=== PATIENT | male | born 1990 | race Caucasian/White ===

== ENCOUNTER 2021-01-21 00:51 | Inpatient (IN) | payer OTHER ==
[2021-01-21] MEDS ORDERED: KETOROLAC 15 MG/ML 1 ML VIAL IM STA (01:03)
[2021-01-21] MEDS ORDERED: MORPHINE SULFATE 4 MG/ML SYRINGE IM STA (01:03)
[2021-01-21] MEDS ORDERED: DIPH,PERTUS(ACELL)TETVAC-LF 0.5 ML VIAL IM ONE (01:12)
--- NOTE | 2021-01-21 01:28 | XR ---
EXAMINATION TYPE: XR finger LT DATE OF EXAM: 01/21/2021 COMPARISON: NONE HISTORY: Pain and swelling TECHNIQUE: 3 views FINDINGS: There is some soft tissue swelling around the hand and the thumb. There is no evidence of focal bone destruction. I see no fracture nor dislocation. Thumb appears inta ct. IMPRESSION: Mild soft tissue swelling. No fracture seen.
--- NOTE | 2021-01-21 01:29 | ED ---
Wound/Laceration HPI - General Chief Complaint: Wound/Laceration Stated Complaint: Left thumb injury Time Seen by Provider: 01/21/21 00:57 Source: patient, family Mode of arrival: ambulatory Limitations: no limitations - History of Present Illness Initial Comments: 30 year-old male patient presents to the emergency department for evaluation of left thumb pain and swelling. Patient states he punctured it on a deanna nail three days ago. It was a dirty nail. States that today the thumb has become quite painful and swollen. Pain worsens with movement. States he has had low grade fever at home around 100 degrees F. Has not taken any medication today for pain or fever. Denies any red streaking up the arm. Denies nuasea or vomiting. - Related Data Allergies Allergy/AdvReac Type Severity Reaction Status Date / Time No Known Allergies Allergy Verified 01/21/21 00:56 Review of Systems ROS Statement: Those systems with pertinent positive or pertinent negative responses have been documented in the HPI. ROS Other: All systems not noted in ROS Statement are negative. Past Medical History Past Medical History: No Reported History History of Any Multi-Drug Resistant Organisms: MRSA Date of last positivie culture/infection: 2014 MDRO Source:: left lower leg Past Surgical History: Orthopedic Surgery Past Psychological History: No Psychological Hx Reported Smoking Status: Current every day smoker Past Alcohol Use History: None Reported Past Drug Use History: None Reported General Exam Limitations: no limitations General appearance: alert, in no apparent distress, other (Physical well- developed, well-nourished adult male patient in no acute distress. Vital signs upon presentation temperature 99.1F oral, pulse 99, respirations 20, blood pressure 143/93, pulse ox 96% on room air.) Respiratory exam: Present: normal lung sounds bilaterally. Absent: respiratory distress, wheezes, rales, rhonchi, stridor Cardiovascular Exam: Present: regular rate, normal rhythm, normal heart sounds. Absent: systolic murmur, diastolic murmur, rubs, gallop, clicks Extremities exam: Present: full ROM, tenderness (Over the left thumb), normal capillary refill, other (Fusiform swelling of the left thumb, overlying erythema. Tenderness over the entirety of the thumb. Pad of the thumb is soft. No evidence for abscess. Radial pulses 2+.). Absent: pedal edema, joint swelling, calf tenderness Neurological exam: Present: alert, oriented X3, CN II-XII intact Psychiatric exam: Present: normal affect, normal mood Skin exam: Present: warm, dry, intact, normal color. Absent: rash Course Vital Signs 01/21/21 01/21/21 00:52 01:00 Temperature 98.6 F 99.1 F Pulse Rate 99 Respiratory 20 Rate Blood Pressure 143/93 O2 Sat by Pulse 96 Oximetry Medical Decision Making - Medical Decision Making 30-year-old male patient presents for evaluation of left thumb pain and swelling after a puncture injury on Sunday. Physical examination did reveal fusiform swelling, generalized tenderness to the thumb. There is overlying erythema. No evidence for abscess. No lymphangitis. Did have low-grade temperature 99.1F. He was given pain medication here. X-rays negative for evidence for foreign body or bony injury. We started IV antibiotics for possible flexor ten osynovitis. He'll be admitted for further evaluation by orthopedics. He is agreeable this plan. Case discussed with my attending Dr. Nolen who also saw and evaluated the patient. - Radiology Data Radiology results: report reviewed, image reviewed 3 views of the left thumb are obtained. Report reviewed in its entirety. Impression by Dr. Corona shows mild soft tissue swelling. No fracture seen. Disposition Clinical Impression: Flexor tenosynovitis of thumb, Puncture wound of left thumb Disposition: ADMITTED IP TO THIS [facility] Condition: Serious Referrals: None,Stated [Primary Care Provider] - 1-2 days Decision to Admit Reason: Admit from EC Decision Date: 01/21/21 Decision Time: 02:19
[2021-01-21] MEDS ORDERED: VANCOMYCIN IV PER PHARMACY 1 EACH MISC MISCELLANE PRN (02:10)
[2021-01-21] MEDS ORDERED: PIPERACILLIN-TAZOBACTAM 3.375 GM in SODIUM CHLORIDE 0.9% 100 ML IVPB STA (02:11)
[2021-01-21] MEDS ORDERED: SODIUM CHLORIDE 0.9% 1,000 ML IV ONE (02:12)
[2021-01-21] MEDS ORDERED: NALOXONE 0.4 MG/ML 1 ML VIAL IV PRN (02:16)
[2021-01-21] MEDS ORDERED: VANCOMYCIN 1,250 MG in SODIUM CHLORIDE 0.9% 250 ML IVPB ONE (02:30)
[2021-01-21] MEDS: SODIUM CHLORIDE 0.9% 1,000 ML IV SCH ×2 (03:04→17:21)
[2021-01-21 03:13] LABS: Basophils % (A) 0 %; Eosinophils # (A) 0.1 k/uL (0-0.7); Eosinophils % (A) 2 %; HCT 37.7 % (39.0-53.0); HGB 12.9 gm/dL (13.0-17.5); Lymphocytes # (A) 1.7 k/uL (1.0-4.8); Lymphocytes % (A) 22 %; MCH 32.1 pg (25.0-35.0); MCHC 34.1 g/dL (31.0-37.0); Mean Platelet Volume 7.2; Monocytes # (A) 0.6 k/uL (0-1.0); Monocytes % (A) 7 %; Neutrophils # (A) 5.1 k/uL (1.3-7.7); Neutrophils % (A) 66 %; Platelet Count 196 k/uL (150-450); RBC 4.01 m/uL (4.30-5.90); RDW 13.4 % (11.5-15.5); WBC 7.7 k/uL (3.8-10.6)
[2021-01-21 03:45] LABS: ALT 70 U/L (4-49); AST 58 U/L (17-59); African American GFR (CKD) >90 (>60 ml/min/1.73 sqM); Albumin 3.6 g/dL (3.5-5.0); Alkaline Phosphatase 71 U/L (38-126); Anion Gap 8 mmol/L; Blood Urea Nitrogen 14 mg/dL (9-20); Calcium 8.5 mg/dL (8.4-10.2); Carbon Dioxide 26 mmol/L (22-30); Chloride 100 mmol/L (98-107); Glucose 117 mg/dL (74-99); Non-African American GFR(CKD) >90 (>60 ml/min/1.73 sqM); Potassium 4.1 mmol/L (3.5-5.1); Sodium 134 mmol/L (137-145); Total Bilirubin 0.2 mg/dL (0.2-1.3); Total Protein 6.6 g/dL (6.3-8.2)
[2021-01-21] MEDS: HYDROmorphone 0.5 MG/0.5 ML SYRINGE IVP PRN ×5 (04:01→22:42)
[2021-01-21 04:27] LABS: Erythrocyte Sedimentation Rate 17 mm/hr (0-15)
[2021-01-21] MEDS: KETOROLAC 15 MG/ML 1 ML VIAL IVP PRN ×2 (07:27→17:17)
--- NOTE | 2021-01-21 09:53 | P.CNOR ---
History of Present Illness - [facility] Consult date: 01/21/21 Requesting physician: Becky Brown Consult reason: other (tenosynovitis left thumb) History of present illness: Patient presented the emergency room last night with left thumb pain and swelling. Patient states 3 days ago he was on a roof and a nail went through his thumb. He says over the past couple days the thumb has become much more painful and inflamed. He says the pain increases with movement. Patient denies any numbness/tingling. Patient does say he feels like the portion of his thumb where the nail went through feels like someone took a match to it and lit it. Hever irizarry feels like this burning sensation s moving down his thumb towards his wrist. He says he did have a fever at home. 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 Patient denies chest pain, trace breath, nausea, vomiting, headache, loss of bowel/bladder control. Past Medical History Past Medical History: No Reported History History of Any Multi-Drug Resistant Organisms: MRSA Year Discovered:: 2014 MDRO Source:: left lower leg Past Surgical History: Orthopedic Surgery Additional Past Surgical History / Comment(s): Left knee surgery, Left Elbow Surgery Past Psychological History: No Psychological Hx Reported Smoking Status: Current every day smoker Past Alcohol Use History: None Reported Past Drug Use History: None Reported Medications and Allergies Home Medications Medication Instructions Recorded Confirmed Type No Known Home Medications 01/21/21 01/21/21 History Allergies Allergy/AdvReac Type Severity Reaction Status Date / Time No Known Allergies Allergy Verified 01/21/21 06:58 Physical Examination Left thumb: Inspection - thumb is inflamed, edematous, erythematous distal to the IP joint. Puncture wounds from the nail is evident distal to the IP joint at the palmar aspect of thumb. Palpation - tenderness to palpation throughout the left thumb. Nontender to palpation at the base of the thumb at the carpal regon. NTTP at wrist as well as other digits. Sensation - patient does have burning sensation distal to the IP joint of the left thumb. ROM- range of motion of left thumb is limited due to patient being in pain. Flexion and abduction are limited. Neurovascular - radial pulses intact, symmetric, 2+. Cap refill <3 sec Results - Labs Labs: Abnormal Lab Results - Last 24 Hours (Table) 07/30/21 07/30/21 Range/Units 02:45 02:45 RBC 4.01 L (4.30-5.90) m/uL Hgb 12.9 L (13.0-17.5) gm/dL Hct 37.7 L (39.0-53.0) % ESR 17 H (0-15) mm/hr Sodium 134 L (137-145) mmol/L Creatinine 0.64 L (0.66-1.25) mg/dL Glucose 117 H (74-99) mg/dL ALT 70 H (4-49) U/L H & H 01/21/21 Range/Units 02:45 Hgb 12.9 L (13.0-17.5) gm/dL Hct 37.7 L (39.0-53.0) % Result Diagrams: 01/21/21 02:45 01/21/21 02:45 Assessment and Plan Assessment: Left thumb tenosynovitis Plan: 1. Left thumb tenosynovitis - patient seen at bedside this morning. At this time we recommend patient to continue IV antibiotics. We'll continue to follow patient daily. At this time we do not recommend any orthopedic surgical intervention. 2. Appreciate medical management and ID - Zosyn and Vanco 3. Pain management - stable at this time Time with Patient: Less than 30
[2021-01-21] MEDS ORDERED: PIPERACILLIN-TAZOBACTAM 3.375 GM in SODIUM CHLORIDE 0.9% 100 ML IVPB SCH (11:00)
[2021-01-21] MEDS: VANCOMYCIN 1,250 MG in SODIUM CHLORIDE 0.9% 250 ML IVPB SCH ×2 (12:25→20:14)
[2021-01-21] MEDS: CEFEPIME 2 GM in SODIUM CHLORIDE 0.9% 100 ML IVPB SCH (15:37)
--- NOTE | 2021-01-21 22:01 | P.CONS ---
History of Present Illness - Reason for Consult Consult date: 01/21/21 tenosynovitis Requesting physician: Emma Archer - Chief Complaint left thumb pain and swelling 3 days - History of Present Illness Patient is a 30-year male presenting to the ER after midnight with pain pulled swelling redness of the left thumb area, apparently 3 days ago the patient was working on the roof and the nail went through his thumb the patient started having pain swelling or redness to the left thumb since then that has progressively in increase in severity patient described the pain to be throbbing intensity is almost 10 out of 10 and has limited motion of his left thumb area patient denies any drainage from the left thumb and the patient did have a fever at home with the symptoms the patient presented to hospital on arrival to the ER the patient was afebrile subsequently have low-grade fever of 99.1 degree form height patient did have a normal white count no left shift kidney function has been normal patient did have x-rays of the finger patient has mild soft tissue swelling no fracture seen patient was admitted to the hospital started on vancomycin and Zosyn infectious disease was consulted for further management of antibiotic therapy Review of Systems Positive point has been mentioned in the HPI rest of the systems are negative Past Medical History Past Medical History: No Reported History History of Any Multi-Drug Resistant Organisms: MRSA Year Discovered:: 2014 MDRO Source:: left lower leg Past Surgical History: Orthopedic Surgery Additional Past Surgical History / Comment(s): Left knee surgery, Left Elbow Surgery Past Psychological History: No Psychological Hx Reported Smoking Status: Current every day smoker Past Alcohol Use History: None Reported Past Drug Use History: None Reported Medications and Allergies Home Medications Medication Instructions Recorded Confirmed Type No Known Home Medications 01/21/21 01/21/21 History Allergies Allergy/AdvReac Type Severity Reaction Status Date / Time No Known Allergies Allergy Verified 01/21/21 06:58 Physical Exam Vitals: Vital Signs Temp Pulse Pulse Resp BP BP Pulse Ox 01/21/21 12:30 52 L 16 01/21/21 07:52 52 L 16 01/21/21 07:00 97.7 F 58 L 16 122/72 99 01/21/21 04:06 98.0 F 52 L 16 127/75 98 01/21/21 03:08 97.8 F 61 16 120/68 96 01/21/21 01:00 99.1 F 01/21/21 00:52 98.6 F 99 20 143/93 96 Intake and Output 01/20/21 01/21/21 01/21/21 22:59 06:59 14:59 Other: # Voids 1 2 Weight 72.575 kg GENERAL DESCRIPTION: Middle-aged male lying in bed, no distress. No tachypnea or accessory muscle of respiration use. HEENT: Shows Pallor , no scleral icterus. Oral mucous membrane is dry. No pharyngeal erythema or thrush NECK: Trachea central, no thyromegaly. LUNGS: Unlabored breathing. Clear to auscultation anteriorly. No wheeze or crackle. HEART: S1, S2, regular rate and rhythm. No loud murmur ABDOMEN: Soft, no tenderness , guarding or rigidity, no organomegaly EXTREMITIES: Left thumb did have swelling and redness tender to touch no drainage SKIN: No rash, no masses palpable. NEUROLOGICAL: The patient is awake, alert, oriented x3, mood and affect normal. Results CBC & Chem 7: 01/21/21 02:45 01/21/21 02:45 Labs: Abnormal Lab Results - Last 24 Hours (Table) 01/21/21 01/21/21 Range/Units 02:45 02:45 RBC 4.01 L (4.30-5.90) m/uL Hgb 12.9 L (13.0-17.5) gm/dL Hct 37.7 L (39.0-53.0) % ESR 17 H (0-15) mm/hr Sodium 134 L (137-145) mmol/L Creatinine 0.64 L (0.66-1.25) mg/dL Glucose 117 H (74-99) mg/dL ALT 70 H (4-49) U/L Assessment and Plan Assessment: patient with left thumb cellulitis and concern for underlying abscess started with nail injury 3 days ago will need to cover for both gram-positive skin steven as well as gram-negative usually associated with this types of infection, patient may benefit from surgical drainage and cultures to help heal infection as well in identifying height the infecting pathogen (1) Flexor tenosynovitis of thumb Current Visit: Yes Status: Acute Code(s): M65.9 - SYNOVITIS AND TENOSYNOVITIS, UNSPECIFIED SNOMED Code(s): 794476503 (2) Puncture wound of left thumb Current Visit: Yes Status: Acute Code(s): S61.032A - PNCTR W/O FB OF LEFT THUMB W/O DAMAGE TO NAIL, INIT SNOMED Code(s): 18277215488054733 Plan: 1-vancomycin pharmacy to dose her with a target trough of 15 while watching her kidney function and Vanco trough closely. 2-discontinue Zosyn rectus risk of nephrotoxicity and and cefepime to cover for gram-negative 3-cultures both aerobic and anaerobic at the time of surgical drainage We will follow on clinical condition and cultures to further adjust medication if needed Thank you for this consultation we will follow the patient along with you Time with Patient: Greater than 30
--- NOTE | 2021-01-21 23:47 | P.HPIM ---
History of Present Illness H&P Date: 01/21/21 Chief Complaint: Left thumb pain and swelling Patient is a 30-year-old male without significant past medical history except current everyday smoker presents to ER with complaints of left thumb swelling and worsening pain for the past 3 days. 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 Since then he has been having pain, swelling and feels like burning of the thumb. Pain is progressively getting worse 10 out of 10 which made him to come to ER. Denied any drainage from the entry wound. Did have fever at home. T-max is 99.1 on admission. Denied any complaints of chest pain or shortness well. No headache or dizziness or lightheadedness. Patient is complaining of pain and requesting IV pain medications. Laboratory data showed WBC 7.7 hemoglobin 12.9 and platelets 196 Sodium 134 potassium 4.1 chloride 100 bicarb is 26 BUN 14 and creatinine 0.64 blood sugar is 117 and liver enzymes are not elevated Review of Systems Constitutional: Patient Subjective fevers and chills . No generalized weakness or weight loss. Abdomen: Patient denied nausea vomiting and diarrhea and abdominal pain. Cardiovascular: Patient denies any chest pain or short of breath no palpitations. Respiratory: patient denied any cough or sputum production. No shortness of breath Neurologic: Patient denied any numbness or tingling headache. Musculoskeletal: Patient denies any complaints of joint swelling or deformity.Left thumb pain and swelling Skin: Negative Psychiatric: Negative Endocrine: No heat or cold intolerance. No recent weight gain. Genitourinary: No dysuria or hematuria. All other 14 point ROS negative except the above Past Medical History Past Medical History: No Reported History History of Any Multi-Drug Resistant Organisms: MRSA Date of last positivie culture/infection: 2014 MDRO Source:: left lower leg Past Surgical History: Orthopedic Surgery Additional Past Surgical History / Comment(s): Left knee surgery, Left Elbow Surgery Past Psychological History: No Psychological Hx Reported Smoking Status: Current every day smoker Past Alcohol Use History: None Reported Past Drug Use History: None Reported Medications and Allergies Home Medications Medication Instructions Recorded Confirmed Type No Known Home Medications 01/21/21 01/21/21 History Allergies Allergy/AdvReac Type Severity Reaction Status Date / Time No Known Allergies Allergy Verified 01/21/21 06:58 Physical Exam Vitals: Vital Signs Temp Pulse Pulse Resp BP BP Pulse Ox 01/21/21 07:52 52 L 16 01/21/21 07:00 97.7 F 58 L 16 122/72 99 01/21/21 04:06 98.0 F 52 L 16 127/75 98 01/21/21 03:08 97.8 F 61 16 120/68 96 01/21/21 01:00 99.1 F 01/21/21 00:52 98.6 F 99 20 143/93 96 Intake and Output 01/20/21 01/21/21 01/21/21 22:59 06:59 14:59 Other: # Voids 1 Weight 72.575 kg PHYSICAL EXAMINATION: Patient is lying in the bed comfortably, no acute distress, awake alert and oriented.. HEENT: Normocephalic. Neck is supple. Pupils reactive. Nostrils clear. Oral cavity is moist. Neck reveals no JVD, carotid bruits, or thyromegaly. CHEST EXAMINATION: Trachea is central. Symmetrical expansion. Lung riley clear to auscultation and percussion. CARDIAC: Normal S1, S2 with no gallops. No murmurs ABDOMEN: Soft. Bowel sounds normal. No organomegaly. No abdominal bruits. Extremities: reveal no edema. No clubbing or cyanosis. Patient does have left thumb and severe tenderness with palpation. Decreased range of motion. Neurologically awake, alert, oriented x3 with well-coordinated movements. No focal deficits noted Skin: No rash or skin lesions. Psychiatric: Coperative. Nonsuicidal Musculoskeletal: No joint swelling or deformity. Normal range of motion. Results CBC & Chem 7: 01/21/21 02:45 01/21/21 02:45 Labs: Abnormal Lab Results - Last 24 Hours (Table) 01/21/21 01/21/21 Range/Units 02:45 02:45 RBC 4.01 L (4.30-5.90) m/uL Hgb 12.9 L (13.0-17.5) gm/dL Hct 37.7 L (39.0-53.0) % ESR 17 H (0-15) mm/hr Sodium 134 L (137-145) mmol/L Creatinine 0.64 L (0.66-1.25) mg/dL Glucose 117 H (74-99) mg/dL ALT 70 H (4-49) U/L Thrombosis Risk Factor Assmnt - DVT/VTE Prophylaxis DVT/VTE Prophylaxis: Pharmacologic Prophylaxis ordered - Choose All That Apply Any of the Below Risk Factors Present?: No Other Risk Factors: No Other congenital or acquired thrombophilia - If yes, enter type in comment: No Thrombosis Risk Factor Assessment Level: Very Low Risk Assessment and Plan Assessment: Left thumb cellulitis and flexor tenosynovitis. Patient had nail injury 3 days ago with subjective fevers and severe pain. Ongoing nicotine addiction Plan: Patient will be continued broad-spectrum antibiotics in the form of vancomycin and cefepime as per ID recommendations. Zosyn has been discontinued. Orthopedic surgery has seen the patient and recommends continue with antibiotics at this time and possible I&D if no improvement with conservative measures. Continue with pain medication as above Dilaudid and Toradol and follow-up culture reports. Continue to follow closely. Smoking cessation has been counseled.
[2021-01-22] MEDS: CEFEPIME 2 GM in SODIUM CHLORIDE 0.9% 100 ML IVPB SCH ×3 (00:49→16:01)
[2021-01-22] MEDS: VANCOMYCIN 1,250 MG in SODIUM CHLORIDE 0.9% 250 ML IVPB SCH ×3 (04:49→20:22)
[2021-01-22] MEDS: HYDROcodone/APAP 5-325MG 1 EACH TAB PO PRN ×2 (05:55→19:29)
[2021-01-22] MEDS: SODIUM CHLORIDE 0.9% 1,000 ML IV SCH ×2 (05:57→15:49)
[2021-01-22 06:44] LABS: African American GFR (CKD) >90 (>60 ml/min/1.73 sqM); Anion Gap 6 mmol/L; Blood Urea Nitrogen 9 mg/dL (9-20); Calcium 8.2 mg/dL (8.4-10.2); Carbon Dioxide 23 mmol/L (22-30); Chloride 106 mmol/L (98-107); Glucose 99 mg/dL (74-99); Non-African American GFR(CKD) >90 (>60 ml/min/1.73 sqM); Potassium 4.5 mmol/L (3.5-5.1); Sodium 135 mmol/L (137-145)
--- NOTE | 2021-01-22 10:02 | P.PN ---
Subjective Progress Note Date: 01/22/21 Principal diagnosis: Left thumb felon Patient seen and examined this morning. He states is not doing really any better at this time. States that it seems to is consolidated a little bit more to the tip of his left thumb. He complains of pain continuously in this thumb. Denies any numbness or tingling. He states it may be underneath his fingernails as well. Denies any other issues at this time. Objective - Vital Signs Vital signs: Vital Signs Temp 98.2 F 01/22/21 07:00 Pulse 57 L 01/22/21 07:00 Resp 16 01/22/21 07:00 BP 129/77 01/22/21 07:00 Pulse Ox 98 01/22/21 07:00 Intake & Output 01/21/21 01/22/21 01/22/21 18:59 06:59 18:59 Intake Total 350 200 Balance 350 200 Intake: Intake, IV Titration 350 Amount Piperacillin-Tazobactam 3 100 .375 gm In Sodium Chloride 0.9% 100 ml @ 25 mls/hr IVPB Q8H [facility] Rx#: [id number] Vancomycin 1,250 mg In 250 Sodium Chloride 0.9% 250 ml @ 125 mls/hr IVPB Q8H [facility] Rx#:[id number] Oral 200 Other: # Voids 2 - Exam Left thumb is again examined it does show more of a consolidation within the fat pad of the left thumb more of a felon in nature. Sensation is still intact C5 to T1 medially all her nerve motor still intact. No other exam changes at this time. - Labs CBC & Chem 7: 01/21/21 02:45 01/22/21 05:45 Labs: Abnormal Lab Results - Last 24 Hours (Table) 01/22/21 Range/Units 05:45 Sodium 135 L (137-145) mmol/L Creatinine 0.46 L (0.66-1.25) mg/dL Calcium 8.2 L (8.4-10.2) mg/dL Microbiology - Last 24 Hours (Table) 01/21/21 02:45 Blood Culture - Preliminary Blood No Growth after 24 hours 01/21/21 02:30 Blood Culture - Preliminary Blood No Growth after 24 hours Assessment and Plan Assessment: 30-year-old male left thumb felon Plan: Orthopedic Surgery Risk Review Isidro Turpin is a 30 yo RHD male presenting for evaluation of sudden onset R thumb pain, after nail gun injury to left thumb distal tip. It was my pleasure to have seen and examined Isidro. In our visit today we have had a chance to go over subjective complaints, phy sical examination findings and treatments including the natural course history without intervention and various interventional options. Hsi imaging demonstrates No acute fracture or dislocation, soft tissue swelling about the thumb. On physical exam, Isidro demonstrates pain with motion of Left thumb with TTP of the distal fat pad with felon appearance and abscess, no flexor sheath pain, no fusiform swelling, no passive motion pain, which is NV intact at this time. I have explained to the patient that this fracture needs stabilization. Based on the patients imaging, physical exam, and the rapid progression and disabling nature of her symptoms, at this time I recommend surgery in the form or a: Incision and drainage of Left thumb felon I discussed the risk and benefits of this procedure at length with Isidro. Questions were invited and answered, and the patient wishes to proceed as outlined below. Currently, I am recommendin. Left thumb incision and drainage of felon 2. Review of surgical risks and benefits as well as an educational packet on the proposed surgical procedure. Risks: All surgical procedures come with inherent risks, including those related to positioning, anesthesia, intraoperative findings, and postoperative complications. It is important to understand that surgery does not come with any guarantee of a successful outcome as complications and adverse events are always possible. The patient was given a handout discussing the surgical procedure and risks associated with the intervention, both of which were discussed with the patient. These risks include but are not limited to the following: - Experiencing same, different or even worse symptoms compared to before surgery. - Requiring further surgery or other forms of treatment presently or at some time in the future . - On an extreme but fortunately relatively rare basis severe complication such as blindness, stroke, heart attack, temporary and/or permanent nerve injury, paralysis, coma, or may occur, sometimes without known explanation. - Surgical complications may include but are not limited to risk of infection, fluid accumulation in the surgical dissection site, including a seroma or hematoma, that requires additional surgery, wound drainage, bleeding, new numbness or weakness, vision changes/loss, spinal fluid leakage, non-healing and/or infected incision, headaches, difficulty or inability to swallow, hoarseness, hemopneumothorax, pneumothorax, injury to nerves, spinal cord, blood vessels, lymphatics or other vital organs (i.e., bowel injury, injury to the great vessels); heterotopic bone formation; complications related to the hardware such as screws, rods, including misplaced hardware, device failure, hardware fracture/breakage, or hardware loosening; retained surgical instrumentations or devices and the need for further surgery. - Medical risks of the planned surgery include but are not limited to generalized Infections to the whole body or local areas outside of the surgical site (sepsis), heart attack, bleeding, anaphylaxis, meningitis, seizure, epilepsy, hearing loss, burn archer, laceration of the head or other areas of the body, bruising, hypersensitivity of the skin, bladder over distension; allergic reaction; shoulder injury related to positioning; fat, blood and air clots to other areas of the body like heart, lungs, brain; failure of internal organs such as lungs, kidneys, liver and excessive bleeding. If blood transfusions are necessary, note that transfusions may cause intolerance reactions such as anaphylaxis or other complex reactions. Despite best efforts, the results of surgery might not heal in terms of bone, soft tissues such as skin, fascia, ligaments, and joints. [facility] is an educational center that serves as a training facility for physician assistants, nurses, orthopedic residents and fellows. Residents are physicians who are completing their surgical intensive training following medical school. They assist in the operating room with direct supervision of the attending surgeons. [place] are surgeons who have completed their training and eligible for board certification. They have opted for an elective year of more specialized training in their field. They assist in the operating room under the supervision of the attending surgeons. Physician assistants are medically trained surgical providers who function in the outpatient, inpatient, and operating room setting under the direct supervision of the attending surgeon. [facility] has multiple operating rooms with single and overlapping rooms running daily. They currently function under the required guidelines as produced by the Senate Finance Committee with regards to the overlapping rooms and will continue to comply with changes to this policy as they occur. The requirements include and are complied with as follows: (1) the critical portions of the overlapping rooms will not occur at the same time, (2) the attending physician will be physically present during the critical portions of the procedure and immediately available during the entire case, and (3) a back-up attending is designated should the primary attending not be immediately availab le. The patient has had a chance to review all the listed information, has been given print outs detailing this information, and has had all his/her questions answered to their satisfaction. It was my pleasure to have seen and examined Isidro Turpin. In our visit today w e have had a chance to go over my understanding of our patient's current condition, the natural course history without intervention and various interventional options. Questions were invited and answered, and the patient wishes to proceed as outlined above. I have seen and examined the patient for 25 minutes and we have spent more than 50% of the time in repeat and detailed counseling about the patient's condition, its natural course history with out and as much as can be predicted with surgery and re-review of various surgical treatment options. In conclusion, Isidro Turpin requested we proceed with the above suggested surgery and are willing to accept risks and limitations of the suggested surgery as nature of the disease process and our best attempts at treatment for the condition. Thank you again for allowing us to be part of your patient's care. Please don't hesitate to contact me if you have any further questions. Signed and authenticated by: Jean Marie Rodriguez [facility] [address] [facility], [address] [address]
[2021-01-22] MEDS ORDERED: VANCOMYCIN TROUGH DUE 1 EACH MISC MISCELLANE ONE (11:00)
[2021-01-22 11:01] LABS: Basophils # (A) 0.04 X 10*3/uL (0.00-0.10); Basophils % (A) 0.6 %; Eosinophils # (A) 0.18 X 10*3/uL (0.04-0.35); Eosinophils % (A) 2.8 %; HCT 38.3 % (39.6-50.0); HGB 12.4 g/dL (13.0-17.0); Lymphocytes # (A) 1.69 X 10*3/uL (0.90-5.00); Lymphocytes % (A) 26.2 %; MCH 31.1 pg (27.0-32.0); MCHC 32.4 g/dL (32.0-37.0); Mean Platelet Volume 10.9 fL (9.5-12.2); Monocytes # (A) 0.57 X 10*3/uL (0.20-1.00); Monocytes % (A) 8.8 %; Neutrophils # (A) 3.96 X 10*3/uL (1.80-7.70); Neutrophils % (A) 61.3 %; Platelet Count 173 X 10*3/uL (140-440); RBC 3.99 X 10*6/uL (4.40-5.60); RDW 13.1 % (11.5-14.5); WBC 6.46 X 10*3/uL (4.50-10.00)
[2021-01-22 12:13] LABS: African American GFR (CKD) >90 (>60 ml/min/1.73 sqM); Non-African American GFR(CKD) >90 (>60 ml/min/1.73 sqM)
[2021-01-22] MEDS: HYDROmorphone 0.5 MG/0.5 ML SYRINGE IVP PRN ×3 (12:24→20:22)
[2021-01-22] MEDS ORDERED: fentaNYL (PF) 50 MCG/ML 2 ML AMP ONE (13:15)
[2021-01-22] MEDS ORDERED: MIDAZOLAM 2 MG/2 ML VIAL ONE (13:15)
[2021-01-22] MEDS ORDERED: PROPOFOL 10 MG/ML 20 ML VIAL IV ONE (13:15)
[2021-01-22] MEDS ORDERED: KETAMINE 10 MG/ML 20 ML VIAL ONE (13:15)
[2021-01-22] MEDS ORDERED: LIDOCAINE 2% INJ 20 MG/ML SQ ONE (13:20)
[2021-01-22] MEDS ORDERED: BUPIVACAINE (PF) 0.5% 30 ML VIAL SQ ONE (13:20)
[2021-01-22] MEDS ORDERED: LACTATED RINGERS 1,000 ML IV ONE (13:23)
[2021-01-22] MEDS ORDERED: BACITRACIN ZINC 500 UNIT/GM OINT 28.4 GM TUBE TOPICAL ONE (14:02)
--- NOTE | 2021-01-22 19:31 | PN ---
PROGRESS NOTE DATE OF SERVICE: 01/22/2021 REASON FOR FOLLOWUP: Left arm abscess and cellulitis. INTERVAL HISTORY: Patient is seen this morning, the patient is scheduled for drainage of the left thumb abscess this afternoon. The patient is complaining of significant pain to the left thumb. No chest pain, shortness of breath or cough. No abdominal pain or diarrhea. PHYSICAL EXAMINATION: Blood pressure is 155/89 with pulse of 65, temperature 97.9. He is 98% on room air. General description is a middle-aged male up in the room in no distress. Respiratory system unlabored breathing, clear to auscultation anteriorly. Heart S1, S2. Regular rate and rhythm no tenderness left arm is swollen and red. No drainage. LABS: Creatinine 0.51. DIAGNOSTIC IMPRESSION AND PLAN: Patient with left thumb abscess awaiting surgical drainage and deep cultures. Patient is covered vancomycin, adjusting med for MRSA culture report. Continue supportive care. MMODL / IJN: [id number] /
[2021-01-23] MEDS: CEFEPIME 2 GM in SODIUM CHLORIDE 0.9% 100 ML IVPB SCH ×3 (00:34→16:52)
[2021-01-23] MEDS: VANCOMYCIN 1,250 MG in SODIUM CHLORIDE 0.9% 250 ML IVPB SCH ×3 (04:26→20:56)
[2021-01-23] MEDS: HYDROmorphone 0.5 MG/0.5 ML SYRINGE IVP PRN ×4 (07:06→20:56)
[2021-01-23] MEDS: SODIUM CHLORIDE 0.9% 1,000 ML IV SCH ×2 (08:18→20:56)
--- NOTE | 2021-01-23 10:47 | P.PN ---
Subjective Progress Note Date: 01/23/21 Principal diagnosis: left thumb felon Patient seen at bedside this morning. Patient says his thumb is doing better this morning. He is wondering when he can go home. Thumb is wrapped in Kerlix bandage. Patient denies chest pain, fever, shortness breath, nausea, vomiting, change in vision, loss of bowel/bladder control. Objective - Vital Signs Vital signs: Vital Signs Temp 98.3 F 01/23/21 07:00 Pulse 74 01/23/21 07:00 Resp 18 01/23/21 07:00 BP 161/91 01/23/21 07:00 Pulse Ox 97 01/23/21 07:00 Intake & Output 01/22/21 01/23/21 01/23/21 18:59 06:59 18:59 Intake Total 1240 600 300 Output Total 10 Balance 1230 600 300 Intake: IV 600 Intake, IV Titration 600 Amount Cefepime 2 gm In Sodium 100 Chloride 0.9% 100 ml @ 25 mls/hr IVPB Q8HR [facility] Rx# :[id number] Vancomycin 1,250 mg In 500 Sodium Chloride 0.9% 250 ml @ 125 mls/hr IVPB Q8H [facility] Rx#:[id number] Oral 640 300 Output: Estimated Blood Loss 10 - Exam Left thumb/hand- wrapped in Kerlix bandage. Patient able to flex and extend all other digits on hand. cap refill <3 sec and brisk. radial pulses 2+, intact. - Labs CBC & Chem 7: 01/22/21 05:45 01/22/21 11:17 Labs: Abnormal Lab Results - Last 24 Hours (Table) 01/22/21 01/22/21 Range/Units 05:45 11:17 RBC 3.99 L (4.40-5.60) X 10*6/uL Hgb 12.4 L (13.0-17.0) g/dL Hct 38.3 L (39.6-50.0) % Absolute Nucleated RBC 0.04 H (0.00-0.00) X 10*3/uL NRBC/100 WBC Diff 0.6 H (0.0-0.0) /100 WBCS Creatinine 0.51 L (0.66-1.25) mg/dL Microbiology - Last 24 Hours (Table) 01/22/21 12:00 Gram Stain - Preliminary Finger - Left First Wound Culture - Preliminary 01/22/21 12:00 Gram Stain - Preliminary Finger - Left First Tissue Culture - Preliminary 01/22/21 12:00 Gram Stain - Preliminary Finger - Left First Wound Culture - Preliminary 01/22/21 12:00 Gram Stain - Preliminary Finger - Left First Wound Culture - Preliminary 01/21/21 02:45 Blood Culture - Preliminary Blood No Growth after 48 hours 01/21/21 02:30 Blood Culture - Preliminary Blood No Growth after 48 hours 01/22/21 12:00 Anaerobic Culture - Preliminary Finger - Left First 01/22/21 20:34 Anaerobic Culture - Preliminary Finger - Left First 01/22/21 12:00 Anaerobic Culture - Preliminary Finger - Left First 01/22/21 12:00 Anaerobic Culture - Preliminary Finger - Left First Assessment and Plan Assessment: Left thumb felon Plan: 1. Left thumb felon - surgery performed yesterday, 01/22/2021 - incision & drainage left thumb felon. patient seen at bedside this morning with dressing on. Patient to soak thumb in hibiclens 3-4 times per day for 15 mins at a time. We will continue to follow patient while in hospital. Plan to discharge home tomorrow. 2. Appreciate medical management and ID -Cefepime and Vanco 3. Pain management - stable at this time. [place] 5mg/325 mg. Time with Patient: Less than 30
--- NOTE | 2021-01-23 19:48 | PN ---
PROGRESS NOTE DATE OF SERVICE: 01/23/2021 REASON FOR FOLLOWUP: Left thumb abscess and cellulitis. INTERVAL HISTORY: Patient is afebrile. Pain to the left thumb is currently slightly controlled. Denies any chest pain or shortness of breath. No cough. No abdominal pain. No diarrhea. PHYSICAL EXAMINATION: Blood pressure 151/70 with a pulse of 82, temperature 98.6, he is 96% on room air. General description is a middle-aged male lying in bed in no distress. Respiratory system: Unlabored breathing. Clear to auscultation anteriorly. Heart S1, S2. Regular rate and rhythm. Abdomen soft, no tenderness. Left thumb currently dressed up. No obvious drainage on the dressing. LABS: Cultures currently pending. DIAGNOSTIC IMPRESSION AND PLAN: Patient with left thumb abscess status post surgical drainage yesterday. Cultures are pending. Patient is covered with vancomycin and cefepime. Discharge antibiotic on the basis of culture report. Continue supportive care. MMODL / IJN: [id number] /
[2021-01-24] MEDS: CEFEPIME 2 GM in SODIUM CHLORIDE 0.9% 100 ML IVPB SCH ×2 (00:15→08:11)
[2021-01-24] MEDS: HYDROmorphone 0.5 MG/0.5 ML SYRINGE IVP PRN ×3 (01:01→09:12)
--- NOTE | 2021-01-24 01:23 | P.PN ---
Subjective Progress Note Date: 01/22/21 Principal diagnosis: Left thumb cellulitis and flexor tenosynovitis. Patient is a 30-year-old male without significant past medical history except current everyday smoker presents to ER with complaints of left thumb swelling and worsening pain for the past 3 days. 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 Since then he has been having pain, swelling and feels like burning of the thumb. Pain is progressively getting worse 10 out of 10 which made him to come to ER. Denied any drainage from the entry wound. Did have fever at home. T-max is 99.1 on admission. Denied any complaints of chest pain or shortness well. No headache or dizziness or lightheadedness. Patient is complaining of pain and requesting IV pain medications. Laboratory data showed WBC 7.7 hemoglobin 12.9 and platelets 196 Sodium 134 potassium 4.1 chloride 100 bicarb is 26 BUN 14 and creatinine 0.64 blood sugar is 117 and liver enzymes are not elevated 01/22/2021 Patient is currently lying in the bed complains of left thumb throbbing pain and is requesting any pain medications. Patient continues to have pain last night and could not able to sleep. Swelling seems to be increasing.. Patient was seen by orthopedic surgery and is planning for I&D today. Laboratory data showed WBC 6.4 hemoglobin 12.4 and platelets 173 Sodium 135 potassium 4.5 BUN 9 and creatinine 0.6 Patient has been continued on antibiotics in the form of vancomycin. ID and orthopedic surgery is on board. Current medications reviewed. Objective - Vital Signs Vital signs: Vital Signs Temp 98.5 F 01/22/21 19:10 Pulse 65 01/22/21 20:00 Resp 16 01/22/21 20:00 BP 147/88 01/22/21 19:10 Pulse Ox 99 01/22/21 19:10 Intake & Output 01/22/21 01/22/21 01/23/21 06:59 18:59 06:59 Intake Total 350 1240 Output Total 10 Balance 350 1230 Intake: IV 600 Intake, IV Titration 350 Amount Piperacillin-Tazobactam 3 100 .375 gm In Sodium Chloride 0.9% 100 ml @ 25 mls/hr IVPB Q8H [facility]CLUDE 234 BEDS AT [facility] Rx#: [id number] Vancomycin 1,250 mg In 250 Sodium Chloride 0.9% 250 ml @ 125 mls/hr IVPB Q8H COUNTS INCLUDE 234 BEDS AT THE [facility] Rx#:[id number] Oral 640 Output: Estimated Blood Loss 10 - Exam PHYSICAL EXAMINATION: Patient is lying in the bed comfortably, no acute distress, awake alert and oriented.. HEENT: Normocephalic. Neck is supple. Pupils reactive. Nostrils clear. Oral cavity is moist. Neck reveals no JVD, carotid bruits, or thyromegaly. CHEST EXAMINATION: Trachea is central. Symmetrical expansion. Lung riley clear to auscultation and percussion. CARDIAC: Normal S1, S2 with no gallops. No murmurs ABDOMEN: Soft. Bowel sounds normal. No organomegaly. No abdominal bruits. Extremities: reveal no edema. No clubbing or cyanosis. Patient does have left thumb and severe tenderness with palpation. Decreased range of motion. Neurologically awake, alert, oriented x3 with well-coordinated movements. No focal deficits noted Skin: No rash or skin lesions. Psychiatric: Coperative. Nonsuicidal Musculoskeletal: No joint swelling or deformity. Normal range of motion. - Labs CBC & Chem 7: 01/22/21 05:45 01/22/21 11:17 Labs: Abnormal Lab Results - Last 24 Hours (Table) 01/22/21 01/22/21 01/22/21 Range/Units 05:45 05:45 11:17 RBC 3.99 L (4.40-5.60) X 10*6/uL Hgb 12.4 L (13.0-17.0) g/dL Hct 38.3 L (39.6-50.0) % Absolute Nucleated RBC 0.04 H (0.00-0.00) X 10*3/uL NRBC/100 WBC Diff 0.6 H (0.0-0.0) /100 WBCS Sodium 135 L (137-145) mmol/L Creatinine 0.46 L 0.51 L (0.66-1.25) mg/dL Calcium 8.2 L (8.4-10.2) mg/dL Microbiology - Last 24 Hours (Table) 01/21/21 02:45 Blood Culture - Preliminary Blood No Growth after 24 hours 01/21/21 02:30 Blood Culture - Preliminary Blood No Growth after 24 hours Assessment and Plan Assessment: Left thumb cellulitis and flexor tenosynovitis. Patient had nail injury 3 days ago with subjective fevers and severe pain. Ongoing nicotine addiction Plan: Patient will be continued broad-spectrum antibiotics in the form of vancomycin and cefepime as per ID recommendations. Zosyn has been discontinued. Orthopedic surgery Is planning for I&D today. Continue with pain medication as above Dilaudid and Toradol and follow-up culture reports. Continue to follow closely. Smoking cessation has been counseled.
--- NOTE | 2021-01-24 01:26 | P.PN ---
Subjective Progress Note Date: 01/23/21 Principal diagnosis: Left thumb cellulitis and flexor tenosynovitis. Patient is a 30-year-old male without significant past medical history except current everyday smoker presents to ER with complaints of left thumb swelling and worsening pain for the past 3 days. 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 Since then he has been having pain, swelling and feels like burning of the thumb. Pain is progressively getting worse 10 out of 10 which made him to come to ER. Denied any drainage from the entry wound. Did have fever at home. T-max is 99.1 on admission. Denied any complaints of chest pain or shortness well. No headache or dizziness or lightheadedness. Patient is complaining of pain and requesting IV pain medications. Laboratory data showed WBC 7.7 hemoglobin 12.9 and platelets 196 Sodium 134 potassium 4.1 chloride 100 bicarb is 26 BUN 14 and creatinine 0.64 blood sugar is 117 and liver enzymes are not elevated 01/22/2021 Patient is currently lying in the bed complains of left thumb throbbing pain and is requesting any pain medications. Patient continues to have pain last night and could not able to sleep. Swelling seems to be increasing.. Patient was seen by orthopedic surgery and is planning for I&D today. Laboratory data showed WBC 6.4 hemoglobin 12.4 and platelets 173 Sodium 135 potassium 4.5 BUN 9 and creatinine 0.6 Patient has been continued on antibiotics in the form of vancomycin. ID and orthopedic surgery is on board. 01/23/2021 Patient is currently resting in the bed comfortably. Left thumb pain is much better today. Left thumb wound is wrapped with Kerlix bandage. Patient has been afebrile. No nausea vomiting abdominal pain or diarrhea. Patient will be continued antibiotics on home vancomycin. Follow-up culture reports. Patient with MRSA. ID is on board. Current medications reviewed. Objective - Vital Signs Vital signs: Vital Signs Temp 98.2 F 01/23/21 20:00 Pulse 66 01/23/21 20:00 Resp 17 01/23/21 20:00 BP 128/83 01/23/21 20:00 Pulse Ox 100 01/23/21 20:00 Intake & Output 01/23/21 01/23/21 01/24/21 06:59 18:59 06:59 Intake Total 600 1812.5 Balance 600 1812.5 Intake: Intake, IV Titration 600 912.5 Amount Cefepime 2 gm In Sodium 100 100 Chloride 0.9% 100 ml @ 25 mls/hr IVPB Q8HR [facility] Rx# :[id number] Sodium Chloride 0.9% 1, 562.5 000 ml @ 75 mls/hr IV . [id number] [facility] Rx#:[id number] Vancomycin 1,250 mg In 500 250 Sodium Chloride 0.9% 250 ml @ 125 mls/hr IVPB Q8H [facility] Rx#:[id number] Oral 900 - Exam PHYSICAL EXAMINATION: Patient is lying in the bed comfortably, no acute distress, awake alert and oriented.. HEENT: Normocephalic. Neck is supple. Pupils reactive. Nostrils clear. Oral cavity is moist. Neck reveals no JVD, carotid bruits, or thyromegaly. CHEST EXAMINATION: Trachea is central. Symmetrical expansion. Lung riley clear to auscultation and percussion. CARDIAC: Normal S1, S2 with no gallops. No murmurs ABDOMEN: Soft. Bowel sounds normal. No organomegaly. No abdominal bruits. Extremities: reveal no edema. No clubbing or cyanosis. Patient does have left thumb with kerlix bandage. Neurologically awake, alert, oriented x3 with well-coordinated movements. No focal deficits noted Skin: No rash or skin lesions. Psychiatric: Coperative. Nonsuicidal Musculoskeletal: No joint swelling or deformity. Normal range of motion. - Labs CBC & Chem 7: 01/22/21 05:45 01/22/21 11:17 Labs: Microbiology - Last 24 Hours (Table) 01/22/21 12:00 Gram Stain - Preliminary Finger - Left First Wound Culture - Preliminary Presumptive MRSA 01/22/21 12:00 Gram Stain - Preliminary Finger - Left First Wound Culture - Preliminary Presumptive MRSA 01/22/21 12:00 Gram Stain - Preliminary Finger - Left First Tissue Culture - Preliminary Presumptive MRSA 01/22/21 12:00 Gram Stain - Preliminary Finger - Left First Wound Culture - Preliminary 01/21/21 02:45 Blood Culture - Preliminary Blood No Growth after 48 hours 01/21/21 02:30 Blood Culture - Preliminary Blood No Growth after 48 hours 01/22/21 12:00 Anaerobic Culture - Preliminary Finger - Left First 01/22/21 20:34 Anaerobic Culture - Preliminary Finger - Left First 01/22/21 12:00 Anaerobic Culture - Preliminary Finger - Left First 01/22/21 12:00 Anaerobic Culture - Preliminary Finger - Left First Assessment and Plan Assessment: Left thumb cellulitis and flexor tenosynovitis. Patient had nail injury 3 days ago with subjective fevers and severe pain. Ongoing nicotine addiction Plan: Patient will be continued broad-spectrum antibiotics in the form of vancomycin and cefepime as per ID recommendations. Zosyn has been discontinued. Orthopedic surgery Is following. Status post I&D. Wound cultures growing presumptive MRSA. Pain is much improved today. . Continue with pain medication as above Dilaudid and Toradol and follow-up culture reports. Continue to follow closely. Smoking cessation has been counseled.
[2021-01-24 04:10] VITALS: RESP 18
[2021-01-24] MEDS: VANCOMYCIN 1,250 MG in SODIUM CHLORIDE 0.9% 250 ML IVPB SCH (04:36)
[2021-01-24 06:41] LABS: African American GFR (CKD) >90 (>60 ml/min/1.73 sqM); Non-African American GFR(CKD) >90 (>60 ml/min/1.73 sqM)
[2021-01-24] MEDS: HYDROcodone/APAP 5-325MG 1 EACH TAB PO PRN (08:10)
[2021-01-24] MEDS: SODIUM CHLORIDE 0.9% 1,000 ML IV SCH (08:12)
[2021-01-24 08:13] VITALS: BP 124/74; PULSE 64; TEMP 98.8
--- NOTE | 2021-01-24 09:33 | P.OP ---
Date of Procedure: 01/22/21 Preoperative Diagnosis: 1. Left thumb felon Postoperative Diagnosis: 1. Left thumb felon 2. Left thumb distal tip nail bed infection with steril matrix erosion Procedure(s) Performed: 1. Incision and drainage of left thumb felon 2. Irrigation and debridement of left thumb skin soft tissue, bone and nail bed using the following: -Skin knife used to remove calloused skin and necrotic fat -Rongure used to remove necrotic fat -Elevator used to scrape soft tissues and bone 3. Nail bed repair left thumb Implants: none Anesthesia: local Surgeon: Jean Marie Villanueva Estimated Blood Loss (ml): 10 IV fluids (ml): 500 Urine output (ml): 0 Pathology: other (x2 cultures and x2 tissue) Condition: stable Disposition: PACU Indications for Procedure: 30 yo male presented to the ED with c/o thumb pain after shooting it with a nail gun. He works as a street sweeper operator and was using a nail gun and it misfired striking this left thumb from radial to ulnar. It passed through and through. He had pain after but it seemed to get better but then over the past few days he noted increased swelling, pain and redness about the thumb so much so that he came to ED for evaluation. He was admitted and started on antibiotics for possible flexor tenosynovitis. Upon evaluation the patient was found to have a felon of his left thumb as well as possible nail bed infection. We attempted conservative treatment with 24 hrs of IVABX first, but this did not help his symptoms and this morning he was slightly worse and the swelling and flucctuence had coalessed in the fat pad of the thumb and under the nail bed distally and within his distal callouses. Of note, he has extremely calloused hands due to his climbing work and it would seem that part of the infection is actually in one of these callouses. We discussed conservative vs surgical management at length and he has elected for surgical debridment and I agree. We discussed risks and benefits of surgery which are outlined in the risk review. He is willing to proceed with debridement. Operative Findings: Felon Left thumb abscessed distal nailbed and callous left thumb. Description of Procedure: The patient was seen and examined in the preoperative area. All preoperative protocols were followed. Informed consent was obtained risks and benefits of the procedure were discussed at length. Risks including bleeding infection damage to the surrounding tissue and risk of reoperation were discussed with the patient. Risk of anesthesia up to and including was a discussed with the patient. These are outlined in the risk reviewed. They were willing to accept these risks and all of the risks of surgery. The patient was given a weight- based dose of antibiotics in the form of vancomycin weight-based dose. The patient was seen and evaluated by the anesthesia team who deemed them fit for surgery. The site was marked, the patient was willing to proceed with the procedure. The patient was transferred to the operative suite by the Department of anesthesia. There were then drifted off to sleep by the department of anesthesia and sedation with local anesthesia anesthesia was used. Once adequate anesthesia had been obtained the patient was carefully transferred to the operative bed. All bony prominences were padded accordingly. SCDs were placed on the nonoperative lower extremities. Arms were well padded. Left arm was exposed placed on an arm board well-padded 10:15 and placed on the patient's arm Preoperative briefing was done with the operative team and everyone was ready for the procedure to start. The patients left upper extremity was then prepped and draped in the normal sterile fashion. Timeout was then performed and all parties in agreement with the procedure to be performed. We first placed a Levi tourniquet around the patient's thumb after anesthetizing at locally. Once good anesthesia been attained we were able to remove the nail plate of the right thumb as there was purulence coming from underneath this. This showed purulence in the distal tip of the thumb in the patient's nailbed on the distal radial aspect as well as into the callus on his thumb. We irrigated this and debrided it using curettmundo Lopez in the skin and soft tissue as well as the bone. We also then performed a felon release bilaterally due to the patient's large thumb and the swelling in this area purulence was released from your cultures were taken of both areas and sent. We then irrigated out the area sterilely with sterile saline and performed a debridement. The loculations in the thumb fat pad were broken up using a stat. After irrigating and debriding the nail bed and the callus is determined that this was nonviable tissue and that the nailbed needed to be repaired and so 4-0 chromic was placed into this area to repair the nailbed and get coverage of the distal tuft and bone. The excess [place] was then removed using a knife which will allow for granulation tissue in this area. After this was completed we then closed the bilateral felon releases with chromic loosely in a simple fashion. The wound was then cleaned and dressed sterilely a fake nail was placed and covered with bacitracin. And then dressed with Adaptic 4 x 4 and Frank wrap. Patient will start 3 times a day Hibiclens soaks tomorrow. The patient was then transferred back to their hospital bed. There were awakened by department of anesthesia having tolerated the procedure very well with no complications. The patient was then transported to the postoperative care unit in stable condition.
--- NOTE | 2021-01-24 09:56 | P.PN ---
Subjective Progress Note Date: 01/24/21 Principal diagnosis: Left thumb felon Pt s/e doing well. No issues. Still some pain but slowly getting better. Doing hibiclens soaks TID right now. Denies any other issues. Objective - Vital Signs Vital signs: Vital Signs Temp 98.8 F 01/24/21 07:00 Pulse 64 01/24/21 07:00 Resp 18 01/24/21 07:00 BP 124/74 01/24/21 07:00 Pulse Ox 99 01/24/21 07:00 Intake & Output 01/23/21 01/24/21 01/24/21 18:59 06:59 18:59 Intake Total 1812.5 1000 Balance 1812.5 1000 Intake: Intake, IV Titration 912.5 Amount Cefepime 2 gm In Sodium 100 Chloride 0.9% 100 ml @ 25 mls/hr IVPB Q8HR [facility] Rx# :[id number] Sodium Chloride 0.9% 1, 562.5 000 ml @ 75 mls/hr IV . [id number] [facility] Rx#:[id number] Vancomycin 1,250 mg In 250 Sodium Chloride 0.9% 250 ml @ 125 mls/hr IVPB Q8H [facility] Rx#:[id number] Oral 900 1000 Other: Voiding Method Toilet # Voids 2 - Exam Incisions are CDI Swelling better at this time Drainage serosanguinous nailbed granulation good SILT M/R/U nerves. +motor M/R/U nerves 2/4 R/U pulses Compartment soft compressive. - Labs CBC & Chem 7: 01/22/21 05:45 01/24/21 06:03 Labs: Abnormal Lab Results - Last 24 Hours (Table) 01/24/21 Range/Units 06:03 Creatinine 0.57 L (0.66-1.25) mg/dL Microbiology - Last 24 Hours (Table) 01/22/21 12:00 Gram Stain - Preliminary Finger - Left First Tissue Culture - Preliminary Presumptive MRSA 01/21/21 02:45 Blood Culture - Preliminary Blood No Growth after 72 hours 01/21/21 02:30 Blood Culture - Preliminary Blood No Growth after 72 hours 01/22/21 12:00 Gram Stain - Preliminary Finger - Left First Wound Culture - Preliminary Presumptive MRSA 01/22/21 12:00 Gram Stain - Preliminary Finger - Left First Wound Culture - Preliminary Presumptive MRSA 01/22/21 12:00 Gram Stain - Preliminary Finger - Left First Wound Culture - Preliminary Assessment and Plan Assessment: 30-year-old male left thumb felon and nailbed abscess POD2 I&D. Plan: -Pain control -Hibiclens soaks TID, continue -GI/DVT ppx -Cont ABX per ID -Ortho stable for DC home with abx per primary, follow up in 1 week. Cont hibiclens soaks at home.
[2021-01-24] MEDS ORDERED: NICOTINE 21MG/24HR PATCH TRANSDERM SCH (10:15)
--- NOTE | 2021-01-24 13:07 | PN ---
PROGRESS NOTE DATE OF SERVICE: 01/24/2021 REASON FOR FOLLOWUP: Left thumb abscess. INTERVAL HISTORY: The patient is currently afebrile. Patient is breathing comfortably. The patient's pain to the left arm has decreased intensity. No chest pain, shortness of breath or cough. No abdominal pain. No diarrhea. PHYSICAL EXAMINATION: Blood pressure is 124/74 with a pulse of 64, temperature 98.8. He is 99% on room air. General description is a middle-aged male up in the room in no distress. Respiratory system: Unlabored breathing, clear to auscultation anteriorly. Heart S1, S2. Regular rate and rhythm. Abdomen soft, no tenderness. Left thumb is currently dressed. Was earlier changed by the Ortho. Looking at the note, the incision was clean. The swelling was decreased and drainage was serosanguineous. LABS: Cultures showing presumptive MRSA with sensitivities pending. Blood culture has been negative. DIAGNOSTIC IMPRESSION AND PLAN: Patient with left thumb abscess and cellulitis status post drainage. The patient insistent on going home and does not want to wait for the sensitivities to finalize. Plan at this time is to switch him to Bactrim DS. Nurse practitioner to keep an eye on the make sure sensitive. The patient advised if any worsening of swelling, he has to come back to the hospital. MMODL / IJN: [id number] /
--- NOTE | 2021-01-24 14:02 | P.DS ---
Providers Date of admission: 01/22/21 17:35 Expected date of discharge: 01/24/21 Attending physician: Jennifer Tinoco Consults: 01/21/21 02:17 Consult Physician Routine Consulting Provider: Jean Marie Villanueva Consult Reason/Comments: Flexor tenosynovitis left thumb Do you want consulting provider notified?: Yes 01/21/21 12:02 Consult Physician Routine Consulting Provider: Timothy Blue Consult Reason/Comments: Tenosynovitis Do you want consulting provider notified?: Yes Primary care physician: Stated None Hospital Course: Final Diagnosis Left thumb cellulitis and flexor tenosynovitis. Patient had nail injury 3 days ago with subjective fevers and severe pain. Ongoing nicotine addiction Discharge Disposition Patient is being discharged home in a stable condition, with guarded prognosis. Patient will follow-up with appointed primary care provider. Patient will follow-up with Dr. Goodman morelos for orthopedics. Total time spent with patient is greater than 35 minutes. Hospital course. This is a pleasant 30-year-old male who presented to the emergency center for complaints of left thumb swelling and pain that has worsened over the last 3 days. 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 Patient has a past medical history significant for every day smoker. The patient states that he feels like there is a burning sensation in his thumb and pain has been getting progressively worse rating it 10 out of 10 which is what prompted his visit to the emergency room. Patient denies any drainage from the wound. Patient has experienced fever at home,. T-max is 99.1 on admission. Patient has denied any complaints of chest pain or shortness of breath, no headache or dizziness or lightheadedness. Patient is requesting IV medication at this time in the emergency center. At this time all labs are within normal limits. Patient was evaluated his hospital stay by orthopedic surgery and had an I&D completed on 01/22/2021 patient was then started on antibiotics in the form of IV vancomycin, and cefepime with a consultation for infectious disease. The left thumb is wrapped with a Kerlix bandage. Patient is pending cultures for final susceptibility for outpatient antibiotic recommendation by ID. Patient is evaluated today at bedside on 01/24/21, recommendations from orthopedics to continue with Hibiclens soaks 3 times a day to the wound on the left thumb felon, and discharge recommendations from infectious disease will be to send the patient home on Bactrim double strength twice a day for 10 days. If wound culture is finalized with micro-susceptibility that shows resistance to Bactrim, patient will be notified via telephone and a different antibiotic will be called in. Patient is aware of this, and is requesting to be discharged today. Vital signs today are stable patient remains afebrile. Patient denies chest pain shortness of breath. Patient was given a small dose of [place] for pain management upon discharge. Educated on smoking cessation, nicotine patches provided today. Please refer to medication reconciliation for current medications. Patient Condition at Discharge: Serious Plan - Discharge Summary Discharge Rx Participant: No New Discharge Prescriptions: New Sulfamethox-Tmp 800-160Mg [Bactrim DS 800-160 mg] 1 tab PO Q12HR 10 Days #20 tab HYDROcodone/APAP 5-325MG [[place] 5-325] 1 each PO Q6HR PRN #10 tab PRN Reason: Pain Discharge Medication List HYDROcodone/APAP 5-325MG [[place] 5-325] 1 each PO Q6HR PRN #10 tab 01/24/21 [Rx] Sulfamethox-Tmp 800-160Mg [Bactrim DS 800-160 mg] 1 tab PO Q12HR 10 Days #20 tab 01/24/21 [Rx] Follow up Appointment(s)/Referral(s): Mariama Earl MD [REFERRING] - 1-2 Days (Please call office to make a new patient appointment.) Jean Marie Villanueva DO [Doctor of Osteopathic Medicine] - 01/31/21 3:00 pm Patient Instructions/Handouts: How to Stop Smoking (DC) Activity/Diet/Wound Care/Special Instructions: Activity Limited until follow-up Follow-up with primary care provider upon discharge and establish with one Continue medications until finished Follow-up with orthopedics outpatient Continue current diet Continue Hibiclens soaks for 20 minutes 3 times per day at home. Dress with nonadherent dressing 4x4 gauze and wrap with Frank Discharge Disposition: HOME SELF-CARE
[2021-01-25] MEDS ORDERED: VANCOMYCIN TROUGH DUE 1 EACH MISC MISCELLANE ONE (03:00)
== END 2021-01-24 11:40 | disposition home or self-care (01) | DRG 580 ==
LOC: EC 00:51 → 6NMEDSUR 02:28 → OBSVTOIN 01-22 17:35
PROVIDERS: ADMIT Hospitalist; ATTEND Hospitalist
PROC: 0JBK0ZZ Excision of Left Hand Subcutaneous Tissue and Fascia, Open Approach (ICD-10-PCS; principal; 2021-01-22 11:00)
DX: L03.012 Cellulitis of left finger (principal); L02.512 Cutaneous abscess of left hand; S61.012A Laceration without foreign body of left thumb without damage to nail, initial encounter; W29.4XXA Contact with nail gun, initial encounter; S61.032A Puncture wound without foreign body of left thumb without damage to nail, initial encounter; Z86.14 Personal history of Methicillin resistant Staphylococcus aureus infection; F17.200 Nicotine dependence, unspecified, uncomplicated; M65.9 Synovitis and tenosynovitis, unspecified
CPT/HCPCS: 80048; 80053; 80202; 82565; 85025; 85652; 87040; 87070; 87075; 87077; 87186; 87205; 90471; 90715; 96372; 99284

== ENCOUNTER → 2022-12-21 | Outpatient (CLI) | payer OTHER ==
[2022-12-21 19:58] LABS: ALT 170 U/L (10-49); AST 105 U/L (14-35); Albumin 4.1 d/dL (3.8-4.9); Albumin/Globulin Ratio 1.37 Ratio (1.60-3.17); Alkaline Phosphatase 78 U/L (41-126); Blood Urea Nitrogen 12.4 mg/dL (9.0-27.0); Calcium 9.3 mg/dL (8.7-10.3); Carbon Dioxide 28.8 mmol/L (21.6-31.8); Chloride 102 mmol/L (96-109); Glucose 76 mg/dL (70-110); Potassium 4.7 mmol/L (3.5-5.5); Sodium 141 mmol/L (135-145); Total Bilirubin 0.3 mg/dL (0.3-1.2); Total Protein 7.1 d/dL (6.2-8.2)
[2022-12-21 21:31] LABS: Basophils # (A) 0.02 X 10*3/uL (0.00-0.10); Basophils % (A) 0.3 %; Eosinophils # (A) 0.19 X 10*3/uL (0.04-0.35); Eosinophils % (A) 3.1 %; HCT 41.5 % (39.6-50.0); HGB 13.3 d/dL (12.0-15.0); Lymphocytes # (A) 1.71 X 10*3/uL (0.90-5.00); Lymphocytes % (A) 27.9 %; MCH 30.2 pg (27.0-32.0); MCV 94.1 FL (80.0-97.0); Monocytes # (A) 0.48 X 10*3/uL (0.20-1.00); Monocytes % (A) 7.8 %; NRBC Per 100 WBC 0 X 10*3/uL (0.00-0.01); Neutrophils % (A) 60.6 %; Platelet Count 205 X 10*3/uL (140-440); RBC 4.41 X 10*6/uL (4.40-5.60); RDW 12.9 % (11.5-14.5); WBC 6.12 X 10*3/uL (4.50-10.00)
== END | disposition home or self-care (01) ==
LOC: LABWHC1 15:14
PROVIDERS: ATTEND Nurse Practitioner Family
DX: B18.2 Chronic viral hepatitis C (principal)
CPT/HCPCS: 36415; 80053; 85025; 87522